=== PATIENT | female | born 1960 | race Caucasian/White ===

== ENCOUNTER 2021-03-18 09:27 | Outpatient (CLI) | payer OTHER | END 2021-03-18 09:28 | disposition home or self-care (01) | LOC: MADRAD 09:27 | PROVIDERS: ATTEND Family Medicine | DX: R07.89 Other chest pain (principal); R09.02 Hypoxemia | CPT/HCPCS: 71046 ==

== ENCOUNTER 2021-05-24 15:03 | Outpatient (CLI) | payer OTHER ==
[~2021-05-24 15:03] MED LIST: Iopamidol 370 76% 100 ML VIAL ONE
[2021-05-24 15:25] LABS: #Basophils 0.1 thou/uL (0.0-0.2); #Eosinphils 0.4 thou/uL (0.0-0.7); #Lymphocytes 2.5 thou/uL (1.20-3.40); #Monocytes 0.5 thou/uL (0.11-0.59); #Neutrophils 2.5 thou/uL (1.40-6.50); %Basophils 1.2 % (0.0-1.0); %Eosinophils 6.1 % (0.0-10.0); %Lymphocytes 41.5 % (21.0-51.0); %Monocytes 9.1 % (0.0-10.0); %Neutrophils 42.2 % (42.0-75.0); Hemoglobin 15.2 g/dL (12.0-16.0); Mean Corpuscular Hemoglobin 30.9 pg (27.0-31.0); Mean Corpuscular Volume 93.6 fL (78.0-98.0); Mean Platelet Volume 9.9 fL (7.4-10.4); Platelet Count 195 thou/uL (130-400); RBC Distribution Width 12.5 % (11.5-14.5); Red Blood Cell (RBC) Count 4.92 mill/uL (4.20-5.40)
[2021-05-24 15:41] LABS: ALT (SGPT) 51 U/L (8-55); AST (SGOT) 29 U/L (5-34); Albumin 4.3 g/dL (3.5-5.0); Alkaline Phosphatase 105 U/L (40-110); Anion Gap 14 mmol/L (10-20); BUN (Urea Nitrogen) 11 mg/dL (9.8-20.1); Bilirubin, Total 0.6 mg/dL (0.2-1.2); CRP (Inflammatory) 5.59 mg/dL (= or < 0.5); Calc. Creatinine Clearance 0 mL/min (70-130); Calcium 9.4 mg/dL (7.8-10.44); Carbon Dioxide 26 mmol/L (22-29); Chloride 105 mmol/L (98-107); Globulin 3.6 g/dL (2.4-3.5); Glucose 99 mg/dL (70-105); Lipase 14 U/L (8-78); Potassium 3.8 mmol/L (3.5-5.1); Protein, Total 7.9 g/dL (6.0-8.3); Sodium 141 mmol/L (136-145)
== END 2021-05-24 15:04 | disposition home or self-care (01) ==
LOC: MADLAB 15:03
PROVIDERS: ATTEND Family Medicine
DX: R10.30 Lower abdominal pain, unspecified (principal); K57.30 Diverticulosis of large intestine without perforation or abscess without bleeding
CPT/HCPCS: 36415; 74177; 80053; 83690; 85025; 86140; Q9967

== ENCOUNTER 2021-07-24 22:37 | Emergency (ER) | payer OTHER ==
[2021-07-25] MEDS ORDERED: Ondansetron ODT 4 MG TAB ONE (00:01)
== END 2021-07-25 00:09 | disposition home or self-care (01) ==
LOC: MADERS 22:37
DX: S09.90XA Unspecified injury of head, initial encounter (principal); I10 Essential (primary) hypertension; Z79.899 Other long term (current) drug therapy; W01.10XA Fall on same level from slipping, tripping and stumbling with subsequent striking against unspecified object, initial encounter
CPT/HCPCS: 70450; 72125; Q0162

== ENCOUNTER 2022-06-28 12:01 | Emergency (ER) | payer MEDICAID, OTHER ==
[2022-06-28] MEDS ORDERED: Morphine 4 MG/ML VIAL ONE (12:37)
[2022-06-28] MEDS ORDERED: Ondansetron PF 4 MG/2 ML Vial ONE (12:37)
[2022-06-28 13:03] LABS: Bilirubin Small (Negative); Blood, Urine Large (Negative); Clarity Slightly Cloudy (Clear); Glucose, Urine (Dipstick) Negative (Negative); Ketone, Urine Trace mg/dL (Negative); Leukocyte Trace (Negative); Nitrite Negative (Negative); Protein, Urine (Dipstick) 30 mg/dL (Neg-Trace); Urobilinogen 0.2 mg/dL (Less than 2)
[2022-06-28 13:04] LABS: #Basophils 0.1 thou/uL (0.0-0.2); #Eosinphils 0.3 thou/uL (0.0-0.7); #Lymphocytes 2.5 thou/uL (1.20-3.40); #Monocytes 0.6 thou/uL (0.11-0.59); #Neutrophils 2.5 thou/uL (1.40-6.50); %Basophils 1.3 % (0.0-1.0); %Eosinophils 4.9 % (0.0-10.0); %Lymphocytes 42.1 % (21.0-51.0); %Monocytes 9.6 % (0.0-10.0); %Neutrophils 42.2 % (42.0-75.0); Mean Corpuscular HGB CONC 31.5 g/dL (32.0-36.0); Mean Corpuscular Hemoglobin 29.6 pg (27.0-31.0); Mean Corpuscular Volume 94.1 fL (78.0-98.0); Mean Platelet Volume 11.8 fL (7.4-10.4); Platelet Count 179 thou/uL (130-400); RBC Distribution Width 12.1 % (11.5-14.5); Red Blood Cell (RBC) Count 5.07 mill/uL (4.20-5.40); White Blood Cell (WBC) Count 5.9 thou/uL (4.8-10.8)
[2022-06-28 13:17] LABS: Specific Gravity, Urine 1.025 (1.002-1.036)
[2022-06-28 13:18] LABS: Bacteria/HPF Rare-Few HPF (None Seen)
[2022-06-28 13:24] LABS: ALT (SGPT) 39 U/L (8-55); AST (SGOT) 18 U/L (5-34); Albumin 4.4 g/dL (3.4-4.8); Alkaline Phosphatase 102 U/L (40-110); Anion Gap 15 mmol/L (10-20); BUN (Urea Nitrogen) 15 mg/dL (9.8-20.1); Bilirubin, Total 0.6 mg/dL (0.2-1.2); Calc. Creatinine Clearance 0 mL/min (70-130); Calcium 9.3 mg/dL (7.8-10.44); Carbon Dioxide 25 mmol/L (23-31); Chloride 105 mmol/L (98-107); Estimated GFR 85; Globulin 3.3 g/dL (2.4-3.5); Glucose 114 mg/dL (80-115); Lipase 12 U/L (8-78); Potassium 3.8 mmol/L (3.5-5.1); Protein, Total 7.7 g/dL (5.8-8.1); Sodium 141 mmol/L (136-145)
[2022-06-28] MEDS ORDERED: Tamsulosin HCl 0.4 MG CAP ONE (13:27)
[2022-06-28] MEDS ORDERED: traMADol HCl 50 MG TAB ONE (13:27)
== END 2022-06-28 13:53 | disposition home or self-care (01) ==
LOC: MADERS 12:01
DX: N13.2 Hydronephrosis with renal and ureteral calculous obstruction (principal); R00.1 Bradycardia, unspecified; I10 Essential (primary) hypertension
CPT/HCPCS: 74176; 80053; 81003; 81015; 83690; 84443; 85025; 96374; J2270; J2405

== ENCOUNTER 2023-01-24 21:38 | Emergency (ER) | payer MEDICAID, OTHER ==
[2023-01-24 22:28] LABS: Amphetamine Not Detected (NotDetected); Barbiturates Screen Not Detected (NotDetected); Benzodiazepine Screen Not Detected (NotDetected); Cocaine Metabolite Screen Not Detected (NotDetected); Medtox Control Line Valid? VALID (VALID); Methadone Not Detected (NotDetected); Methamphetamine Not Detected (NotDetected); Opiate Screen Not Detected (NotDetected); Oxycodone Screen Not Detected (NotDetected); Phencyclidine (PCP) Not Detected (NotDetected); THC/Cannabinoid Screen Not Detected (NotDetected); Tricyclic Screen Not Detected (NotDetected)
== END 2023-01-24 22:56 | disposition home or self-care (01) ==
LOC: MADERS 21:38
DX: I10 Essential (primary) hypertension (principal)
CPT/HCPCS: 80306; 99283